=== PATIENT | female | born 2000 | race African-American/Black ===

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

== ENCOUNTER 2023-08-23 07:29 | Emergency (ER) | payer MEDICAID ==
[~2023-08-23] VITALS: Ht 162.6 cm; Wt 70.0 kg
[2023-08-23 07:40] VITALS: BP 118/68; PULSE 82; RESP 16; TEMP 99.1; O2SAT 99
[2023-08-23] MEDS ORDERED: LACTATED RINGERS 1,000 ML IV SCH (08:30)
[2023-08-23] MEDS ORDERED: ACETAMINOPHEN 325MG TABLET PO ONE (08:30)
[2023-08-23] MEDS ORDERED: ONDANSETRON HCL 4MG/2ML INJ IV ONE (08:30)
== END 2023-08-23 09:51 | disposition left against medical advice (07) ==
LOC: ER 07:33
DX: O99.891 Other specified diseases and conditions complicating pregnancy (principal); Z3A.01 Less than 8 weeks gestation of pregnancy
CPT/HCPCS: 76801; 81025; 99284